=== PATIENT | female | born 1975 | race Asian ===

== ENCOUNTER → 2017-10-02 | Outpatient (CLI) | payer BC | LOC: COL.RAD 12:31 | DX: N83.202 Unspecified ovarian cyst, left side (principal); D25.0 Submucous leiomyoma of uterus ==

== ENCOUNTER → 2017-10-10 | Outpatient (CLI) | payer BC ==
[2017-10-10 16:31] LABS: BASO % 0.1 % (0.0-2.0); EOS % 0.1 % (0-4.0); GRAN % 66.5 % (42.2-75.2); HEMATOCRIT 32.5 % (37.0-47.0); HEMOGLOBIN 9.8 g/dl (12.5-16.0); MEAN CELL VOLUME 71 fl (80.0-100.0); MEAN CORPUSCULAR HEMOGLOBIN 21 pg (27.0-31.0); MEAN CORPUSCULAR HGB CONC 30 g/dl (33.0-37.0); MONO # 0.5 (0.1-0.6); PLATELET COUNT 375 K/mm3 (130-400); RED BLOOD COUNT 4.61 M/mm3 (4.10-5.30); REDCELL DISTRIBUTION WIDTH-CV 16.4 % (11.5-14.5)
[2017-10-10 16:54] LABS: ALANINE AMINOTRANSFERASE 30 U/L (9-52); ALBUMIN 4.6 gm/dL (3.5-5.0); ALKALINE PHOSPHATASE 61 U/L (50-136); ANION GAP 15 mmol/L (7-16); AST,SGOT 24 U/L (15-37); BILIRUBIN,TOTAL 0.2 mg/dL (0.0-1.0); BLOOD UREA NITROGEN 7 mg/dL (7-17); CALCIUM 9.1 mg/dL (8.4-10.2); CARBON DIOXIDE 24 mmol/L (22-30); CHLORIDE 103 mmol/L (98-107); CREATININE, serum 0.63 mg/dL (0.52-1.25); GLUCOSE 114 mg/dL (74-106); SODIUM 142 mmol/L (137-145); TOTAL PROTEIN 8.4 gm/dL (6.4-8.2)
[2017-10-10 17:02] LABS: IRON,SERUM < 10 ug/dL (35-150)
[2017-10-10 17:23] LABS: TOTAL IRON BINDING CAPACITY 439 ug/dL (265-497)
== END ==
LOC: COL.LAB 16:02
PROVIDERS: Family Medicine
DX: F50.89 Other specified eating disorder (principal); R68.83 Chills (without fever); J32.9 Chronic sinusitis, unspecified

== ENCOUNTER → 2018-04-24 | Outpatient (CLI) | payer BC | LOC: COL.RAD 08:34 | DX: N83.209 Unspecified ovarian cyst, unspecified side (principal); N85.8 Other specified noninflammatory disorders of uterus ==

== ENCOUNTER 2018-06-01 09:59 | Day surgery (SDC) | payer BC ==
[~2018-06-01] VITALS: Ht 160 cm; Wt 65.7 kg
[2018-06-01] VITALS (9 sets, daily range): BP systolic 131–156; BP diastolic 78–89; PULSE 82–111; TEMP 97.4–99
[2018-06-01] MEDS ORDERED: TYLENOL 500MG500 MG PO (10:32)
[2018-06-01] MEDS ORDERED: IRON PO (10:33)
[2018-06-01] MEDS ORDERED: ALLEGRA 180MG180 MG PO (10:33)
[2018-06-01] MEDS ORDERED: PERCOCET 325 MG1 TA2 PO (11:39)
[2018-06-01] MEDS ORDERED: MOTRIN 800800 MG/TAB PO (11:39)
== END 2018-06-01 21:00 | disposition home or self-care (01) ==
LOC: SDCO 09:59
DX: D25.1 Intramural leiomyoma of uterus (principal); D25.2 Subserosal leiomyoma of uterus; N92.1 Excessive and frequent menstruation with irregular cycle; R51 Headache; D64.9 Anemia, unspecified
CPT/HCPCS: A4314; J0690; J1100; J1170; J1885; J2405; J2704; J2710; J3010; J7120

== ENCOUNTER → 2018-09-25 | Outpatient (CLI) | payer BC ==
[~2018-09-25] MED LIST: ALLEGRA 180MG180 MG PO; IRON PO; MOTRIN 800800 MG/TAB PO; PERCOCET 325 MG1 TA2 PO; TYLENOL 500MG500 MG PO
[2018-09-25 21:52] LABS: BASO % 0.2 % (0.0-2.0); EOS % 0.3 % (0-4.0); GRAN # 3.8 (1.4-6.5); GRAN % 58.9 % (42.2-75.2); HEMATOCRIT 43.1 % (37.0-47.0); HEMOGLOBIN 13.4 g/dl (12.5-16.0); LYMPH # 2.2 (1.2-3.4); LYMPH % 34.5 % (20.0-51.0); MEAN CELL VOLUME 82 fl (80.0-100.0); MEAN CORPUSCULAR HEMOGLOBIN 26 pg (27.0-31.0); MEAN CORPUSCULAR HGB CONC 31 g/dl (33.0-37.0); MEAN PLATELET VOLUME 11.9 fl (7.4-10.4); MONO # 0.4 (0.1-0.6); MONO % 5.9 % (1.7-9.3); PLATELET COUNT 275 K/mm3 (130-400); RED BLOOD COUNT 5.25 M/mm3 (4.10-5.30)
[2018-09-25 22:26] LABS: THYROID STIMULATING HORMONE 2.61 uIU/mL (0.465-4.680)
== END ==
LOC: ZCOL.LAB 17:48
PROVIDERS: Family Medicine
DX: D64.9 Anemia, unspecified (principal); L65.9 Nonscarring hair loss, unspecified

== ENCOUNTER → 2019-07-05 | Outpatient (CLI) | payer BC ==
[2019-07-05 21:15] LABS: ALBUMIN 4.4 gm/dL (3.5-5.0); BILIRUBIN,TOTAL 0.3 mg/dL (0.0-1.0); CALCIUM 8.9 mg/dL (8.4-10.2); CREATININE, serum 0.65 (0.52-1.25); POTASSIUM 3.9 mmol/L (3.4-5.0); TOTAL PROTEIN 7.9 gm/dL (6.4-8.2)
== END ==
LOC: COL.LAB 17:46
PROVIDERS: Family Medicine
DX: R10.13 Epigastric pain (principal)

== ENCOUNTER → 2019-07-10 | Outpatient (CLI) | payer BC ==
[2019-07-10 16:47] LABS: ALANINE AMINOTRANSFERASE 69 U/L (9-52); ALBUMIN 4.5 gm/dL (3.5-5.0); ALKALINE PHOSPHATASE 92 U/L (50-136); AST,SGOT 22 U/L (15-37); LIPASE 140 U/L (23-300); TOTAL PROTEIN 8.3 gm/dL (6.4-8.2)
[2019-07-10 17:39] LABS: BILIRUBIN,TOTAL < 0.1 mg/dL (0.0-1.0)
== END ==
LOC: COL.LAB 15:54
PROVIDERS: Family Medicine
DX: R10.13 Epigastric pain (principal)

== ENCOUNTER → 2020-10-15 | Outpatient (CLI) | payer BC ==
[~2020-10-15] MED LIST changes: +ALLEGRA ALLERG180 MG PO; +NORCO 325 MG-51 TAB PO
== END ==
LOC: MC.RAD 14:13
DX: Z12.31 Encounter for screening mammogram for malignant neoplasm of breast (principal); N63.10 Unspecified lump in the right breast, unspecified quadrant; N63.20 Unspecified lump in the left breast, unspecified quadrant; R59.0 Localized enlarged lymph nodes

== ENCOUNTER → 2020-10-22 | Outpatient (CLI) | payer BC | LOC: MC.RAD 07:00 | DX: R59.0 Localized enlarged lymph nodes (principal); N63.20 Unspecified lump in the left breast, unspecified quadrant; N63.10 Unspecified lump in the right breast, unspecified quadrant ==

== ENCOUNTER → 2020-10-28 | Outpatient (CLI) | payer BC | LOC: MC.RAD 09:55 | DX: N63.20 Unspecified lump in the left breast, unspecified quadrant (principal); N63.10 Unspecified lump in the right breast, unspecified quadrant; Z98.82 Breast implant status | CPT/HCPCS: A4648 ==

== ENCOUNTER 2020-12-09 07:00 | Day surgery (SDC) | payer BC ==
[~2020-12-09] VITALS: Ht 160 cm; Wt 67.9 kg
[~2020-12-09 07:00] MED LIST changes: -ALLEGRA ALLERG180 MG PO; -NORCO 325 MG-51 TAB PO
[2020-12-09 09:47] VITALS: BP 156/88; PULSE 99; TEMP 98.6
[2020-12-09] MEDS ORDERED: ALLEGRA ALLERG180 MG PO (09:54)
[2020-12-09] MEDS ORDERED: NORCO 325 MG-51 TAB PO (10:33)
[2020-12-09 10:37] VITALS: BP 122/72; PULSE 82
--- NOTE | 2020-12-09 10:37 | NUR ---
Patient returns to room 1 per cart from surgery accompanied by Renetta RN and Jm WILLIAMSON. Patient is awake and alert. Dressing on the left breast incision clean and dry. Temp 98.1 and room air sats 100%. Siderails up x1 and call light in reach. Spouse in room.
[2020-12-09 10:52] VITALS: BP 130/77; PULSE 83
--- NOTE | 2020-12-09 10:52 | NUR ---
Taking ice chips and sipping on warm tea. Denies pain or nausea.
[2020-12-09 11:07] VITALS: BP 132/70; PULSE 80
--- NOTE | 2020-12-09 11:07 | NUR ---
Assisted up to the bathroom. Able to void and returns to room. Continues to sip on warm tea and taking ice chips.
--- NOTE | 2020-12-09 11:20 | NUR ---
Eating toast and applesauce.
[2020-12-09 11:22] VITALS: BP 148/85; PULSE 79
--- NOTE | 2020-12-09 11:22 | NUR ---
Continues to eat applesauce. Sitting up on cart. IV to INT.
--- NOTE | 2020-12-09 12:00 | NUR ---
Medicated with Motrin 600mg po for mild incisional pain.
--- NOTE | 2020-12-09 12:15 | NUR ---
INT needle discontinued and site is free of redness.
--- NOTE | 2020-12-09 12:30 | NUR ---
Dismissal instructions given and patient and spouse both verbalize understanding of these. Instructed that [facility] script will be available to be picked up at pharmacy.
--- NOTE | 2020-12-09 12:36 | NUR ---
Dismissed to home driven by spouse and taken to the front door per wheelchair and assisted into car with dismissal instructions in hand.
== END 2020-12-09 12:36 | disposition home or self-care (01) ==
LOC: SDCO 07:00
DX: D24.2 Benign neoplasm of left breast (principal)
CPT/HCPCS: A4648; J0690; J2704; J7120

== ENCOUNTER → 2022-01-04 | Outpatient (CLI) | payer BC ==
[~2022-01-04] MED LIST changes: +ALLEGRA ALLERG180 MG PO; +NORCO 325 MG-51 TAB PO
== END ==
LOC: MC.RAD 11:45
DX: Z12.31 Encounter for screening mammogram for malignant neoplasm of breast (principal); N63.11 Unspecified lump in the right breast, upper outer quadrant

== ENCOUNTER → 2022-01-07 | Outpatient (CLI) | payer BC | LOC: MC.RAD 13:58 | DX: R92.8 Other abnormal and inconclusive findings on diagnostic imaging of breast (principal) ==